=== PATIENT | male | born 1995 | race Two or more races ===

== ENCOUNTER 2022-10-24 22:15 | Emergency (ER) | payer OTHER ==
[~2022-10-24] VITALS: Ht 175.3 cm; Wt 78.0 kg
== END 2022-10-24 23:42 | disposition home or self-care (01) ==
LOC: ER 22:15
DX: J37.0 Chronic laryngitis (principal)

== ENCOUNTER 2025-07-07 15:20 | Emergency (ER) | payer OTHER ==
[~2025-07-07] VITALS: Ht 170.2 cm; Wt 88.5 kg
[2025-07-07 15:43] VITALS: BP 122/80; O2SAT 96
[2025-07-07] MEDS ORDERED: KETOROLAC TROMETHAMINE 30 MG VIAL IM STA (16:09)
[2025-07-07] MEDS ORDERED: DEXAMETHASONE SODIUM PHOSPHATE 4 MG/ML VIAL IM STA (16:09)
[2025-07-07] MEDS ORDERED: KETOROLAC TROMETHAMINE 30 MG VIAL ONE (16:29)
[2025-07-07] MEDS ORDERED: DEXAMETHASONE SODIUM PHOSPHATE 4 MG/ML VIAL ONE (16:29)
== END 2025-07-07 21:32 | disposition home or self-care (01) ==
LOC: ER 15:20
DX: M25.571 Pain in right ankle and joints of right foot (principal)